=== PATIENT | male | born 1985 | race African-American/Black ===

== ENCOUNTER 2019-02-06 12:38 | Emergency (ER) | payer OTHER ==
[~2019-02-06] VITALS: Ht 188 cm; Wt 99.8 kg
[2019-02-06 12:51] VITALS: BP 147/78
[2019-02-06] MEDS ORDERED: AMOXICILLIN 50500 MG PO (13:06)
== END 2019-02-06 13:19 | disposition home or self-care (01) ==
LOC: M.ERS 12:38
DX: H66.92 Otitis media, unspecified, left ear (principal)

== ENCOUNTER 2019-02-10 16:48 | Emergency (ER) | payer OTHER ==
[~2019-02-10] VITALS: Ht 188 cm; Wt 93.0 kg
[~2019-02-10 16:48] MED LIST: AMOXICILLIN 50500 MG PO
[2019-02-10 18:54] LABS: INFLUENZA A ANTIGEN None Detected (None Detect); INFLUENZA B ANTIGEN None Detected (None Detect)
[2019-02-10] MEDS ORDERED: MEDROLDOSEPACK PO (19:10)
[2019-02-10] MEDS ORDERED: ACETAMINOPHEN-1 EAC1 PO (19:10)
[2019-02-10] MEDS ORDERED: ZPAK PO (19:10)
[2019-02-10 19:35] VITALS: BP 130/74
== END 2019-02-10 19:35 | disposition home or self-care (01) ==
LOC: M.ERS 16:48
PROVIDERS: Physician Assistant
DX: J06.9 Acute upper respiratory infection, unspecified (principal); F17.200 Nicotine dependence, unspecified, uncomplicated